=== PATIENT | female | born 1955 | race Caucasian/White ===

== ENCOUNTER 2016-12-29 18:58 | Observation (INO) | payer BC, OTHER ==
[2016-12-29] MEDS ORDERED: ASPIRIN 81 MG CHEW PO STA (20:12)
[2016-12-29] MEDS ORDERED: hydrALAZINE HCL 20 MG/ML 1 ML VIAL IVP STA (20:12)
[2016-12-29] MEDS ORDERED: NITROGLYCERIN OINT 1 INCH/GM PACKET TOPICAL STA (20:12)
--- NOTE | 2016-12-29 20:18 | ED ---
General Adult HPI - General Chief complaint: Chest Pain Stated complaint: Chest Pain Time Seen by Provider: 12/29/16 19:10 Source: patient, RN notes reviewed Mode of arrival: wheelchair Limitations: no limitations - History of Present Illness Initial comments: This is a 61-year-old female presents emergency Department with a past history significant for high blood pressure and a family history of heart disease. Patient comes in today because she was outside feeding the cat when all of a sudden she started having some chest discomfort that went to her jaw and her left arm. Patient states it persisted until she got to the hospital. Now it is much improved though she still has a little chest discomfort. Patient also noted her blood pressure be elevated at the time it was 169 systolic. Patient denied any shortness of breath or difficulty breathing. Patient had any episode of diaphoresis per patient denied any nausea. Patient denied abdominal pain patient denies vomiting or diarrhea recently. Patient any recent history of fever or cough. Patient denies any patient denies numbness weakness. Patient states she's never had a cardiac catheterization but she has had multiple stress tests and they have been negative. - Related Data Home Medications Medication Instructions Recorded Confirmed Aspirin 325 mg PO ONCE 12/29/16 12/29/16 Cetirizine HCl [Zyrtec] 10 mg PO DAILY 12/29/16 12/29/16 Furosemide [Lasix] 40 mg PO BID PRN 12/29/16 12/29/16 Glucosamine/Chondr Rodriguez A Sod [Osteo 1 tab PO DAILY 12/29/16 12/29/16 Bi-Flex Caplet] Losartan [Cozaar] 25 mg PO DAILY 12/29/16 12/29/16 [place]-3 Fatty Acids/Fish Oil [Fish 1 cap PO DAILY 12/29/16 12/29/16 Oil 1,000 mg Capsule] Allergies Allergy/AdvReac Type Severity Reaction Status Date / Time No Known Allergies Allergy Verified 12/29/16 19:38 Review of Systems ROS Statement: Those systems with pertinent positive or pertinent negative responses have been documented in the HPI. ROS Other: All systems not noted in ROS Statement are negative. Past Medical History Past Medical History: GERD/Reflux Additional Past Medical History / Comment(s): IBS, DIVERTICULOSIS, ARRYTHMIA History of Any Multi-Drug Resistant Organisms: None Reported Past Surgical History: Appendectomy, Hysterectomy Additional Past Surgical History / Comment(s): TUMOR REMOVED BEHIND LT EAR Past Anesthesia/Blood Transfusion Reactions: Postoperative Nausea & Vomiting ( PONV) Past Psychological History: No Psychological Hx Reported Smoking Status: Never smoker Past Alcohol Use History: None Reported Past Drug Use History: None Reported General Exam - General Exam Comments Initial Comments: GENERAL: Patient is well-developed and well-nourished. Patient is nontoxic and well- hydrated and is in mild distress. ENT: Neck is soft and supple. No significant lymphadenopathy is noted. Oropharynx is clear. Moist mucous membranes. Neck has full range of motion without eliciting any pain. EYES: The sclera were anicteric and conjunctiva were pink and moist. Extraocular movements were intact and pupils were equal round and reactive to light. Eyelids were unremarkable. PULMONARY: Unlabored respirations. Good breath sounds bilaterally. No audible rales rhonchi or wheezing was noted. CARDIOVASCULAR: There is a regular rate and rhythm without any murmurs gallops or rubs. ABDOMEN: Soft and nontender with normal bowel sounds. No palpable organomegaly was noted. There is no palpable pulsatile mass. SKIN: Skin is clear with no lesions or rashes and otherwise unremarkable. NEUROLOGIC: Patient is alert and oriented x3. Cranial nerves II through XII are grossly intact. Motor and sensory are also intact. Normal speech, volume and content. Symmetrical smile. MUSCULOSKELETAL: Normal extremities with adequate strength and full range of motion. No lower extremity swelling or edema. No calf tenderness. LYMPHATICS: No significant lymphadenopathy is noted PSYCHIATRIC: Normal psychiatric evaluation. Normal interpersonal interactions appears functionally intact in deals appropriately with others. No signs of depression. No signs of anxiety. Limitations: no limitations Course Vital Signs 12/29/16 12/29/16 12/29/16 18:59 20:01 20:35 Temperature 98.8 F Pulse Rate 86 84 85 Respiratory 18 16 18 Rate Blood Pressure 188/91 152/71 178/81 O2 Sat by Pulse 97 97 95 Oximetry 12/29/16 12/29/16 21:28 22:37 Temperature 97.6 F Pulse Rate 69 84 Respiratory 16 18 Rate Blood Pressure 140/92 128/59 O2 Sat by Pulse 98 96 Oximetry Medical Decision Making - Medical Decision Making EKG shows a normal sinus rhythm at 80 bpm [place] interval is on a 56 QRS is 92 QT interval 368 QTC is 424. Patient's EKG shows no ST segment elevation or depression or T-wave abdomen is noted. Nitro paste oxygen and aspirin appear to take the patient's pain away. Patient' s pain was significant and believe it to be unstable angina/started a heparin on the patient I spoke with Dr. Asencio I admitted the patient wrote admitting orders and consult cardiology continued heparin Nitropaste and aspirin on the floor. Chest x-ray was normal. - Lab Data Result diagrams: 12/29/16 19:25 12/29/16 19:25 Lab Results 12/29/16 12/29/16 12/29/16 Range/Units 19:25 19:25 19:25 WBC 8.1 (3.8-10.6) k/uL RBC 4.61 (3.80-5.40) m/uL Hgb 13.3 (11.4-16.0) gm/dL Hct 40.5 (34.0-46.0) % MCV 87.7 (80.0-100.0) fL MCH 28.9 (25.0-35.0) pg MCHC 33.0 (31.0-37.0) g/dL RDW 13.2 (11.5-15.5) % Plt Count 297 (150-450) k/uL Neutrophils % 58 % Lymphocytes % 28 % Monocytes % 5 % Eosinophils % 6 % Basophils % 1 % Neutrophils # 4.7 (1.3-7.7) k/uL Lymphocytes # 2.2 (1.0-4.8) k/uL Monocytes # 0.4 (0-1.0) k/uL Eosinophils # 0.5 (0-0.7) k/uL Basophils # 0.1 (0-0.2) k/uL PT (9.0-12.0) sec INR (<1.1) APTT (22.0-30.0) sec Sodium 140 (137-145) mmol/L Potassium 4.1 (3.5-5.1) mmol/L Chloride 102 (98-107) mmol/L Carbon Dioxide 27 (22-30) mmol/L Anion Gap 11 mmol/L BUN 27 H (7-17) mg/dL Creatinine 0.87 (0.52-1.04) mg/dL Est GFR (MDRD) Af Amer >60 (>60 ml/min/1.73 sqM) Est GFR (MDRD) Non-Af >60 (>60 ml/min/1.73 sqM) Glucose 77 (74-99) mg/dL Calcium 9.8 (8.4-10.2) mg/dL Magnesium 2.1 (1.6-2.3) mg/dL Total Bilirubin 0.5 (0.2-1.3) mg/dL AST 78 H (14-36) U/L ALT 111 H (9-52) U/L Alkaline Phosphatase 176 H (38-126) U/L Total Creatine Kinase 64 (30-135) U/L CK-MB (CK-2) 1.1 (0.0-2.4) ng/mL CK-MB (CK-2) Rel Index 1.7 Troponin I <0.012 (0.000-0.034) ng/mL Total Protein 7.6 (6.3-8.2) g/dL Albumin 4.5 (3.5-5.0) g/dL 12/29/16 Range/Units 19:25 WBC (3.8-10.6) k/uL RBC (3.80-5.40) m/uL Hgb (11.4-16.0) gm/dL Hct (34.0-46.0) % MCV (80.0-100.0) fL MCH (25.0-35.0) pg MCHC (31.0-37.0) g/dL RDW (11.5-15.5) % Plt Count (150-450) k/uL Neutrophils % % Lymphocytes % % Monocytes % % Eosinophils % % Basophils % % Neutrophils # (1.3-7.7) k/uL Lymphocytes # (1.0-4.8) k/uL Monocytes # (0-1.0) k/uL Eosinophils # (0-0.7) k/uL Basophils # (0-0.2) k/uL PT 9.6 (9.0-12.0) sec INR 0.9 (<1.1) APTT 22.5 (22.0-30.0) sec Sodium (137-145) mmol/L Potassium (3.5-5.1) mmol/L Chloride (98-107) mmol/L Carbon Dioxide (22-30) mmol/L Anion Gap mmol/L BUN (7-17) mg/dL Creatinine (0.52-1.04) mg/dL Est GFR (MDRD) Af Amer (>60 ml/min/1.73 sqM) Est GFR (MDRD) Non-Af (>60 ml/min/1.73 sqM) Glucose (74-99) mg/dL Calcium (8.4-10.2) mg/dL Magnesium (1.6-2.3) mg/dL Total Bilirubin (0.2-1.3) mg/dL AST (14-36) U/L ALT (9-52) U/L Alkaline Phosphatase (38-126) U/L Total Creatine Kinase (30-135) U/L CK-MB (CK-2) (0.0-2.4) ng/mL CK-MB (CK-2) Rel Index Troponin I (0.000-0.034) ng/mL Total Protein (6.3-8.2) g/dL Albumin (3.5-5.0) g/dL Critical Care Time Critical Care Time: Yes Total Critical Care Time: 35 Disposition Clinical Impression: Unstable angina pectoris Disposition: ADMITTED IP TO THIS [facility] Time of Disposition: 22:20
--- NOTE | 2016-12-29 20:34 | XR ---
EXAMINATION TYPE: XR chest 2V DATE OF EXAM: 12/29/2016 COMPARISON: NONE HISTORY: Chest pain TECHNIQUE: Frontal and lateral views of the chest are obtained. FINDINGS: Heart and mediastinum are normal. Lungs are clear of consolidation. There is a small linea r density at the lateral left lung base. There are no hilar masses. Bony thorax is intact. IMPRESSION: Mild subsegmental atelectasis at the lateral left lung base. Normal heart.
[2016-12-29 20:38] LABS: Basophils # (A) 0.1 k/uL (0-0.2); Basophils % (A) 1 %; CH 29.1; CHCM 33.3; Eosinophils # (A) 0.5 k/uL (0-0.7); Eosinophils % (A) 6 %; HCT 40.5 % (34.0-46.0); HDW 2.42; HGB 13.3 gm/dL (11.4-16.0); Luc # (Auto) 0.19; Luc % (Auto) 2; Lymphocytes # (A) 2.2 k/uL (1.0-4.8); Lymphocytes % (A) 28 %; MCH 28.9 pg (25.0-35.0); MCV 87.7 fL (80.0-100.0); Mean Platelet Volume 6.4; Monocytes # (A) 0.4 k/uL (0-1.0); Monocytes % (A) 5 %; Neutrophils # (A) 4.7 k/uL (1.3-7.7); Neutrophils % (A) 58 %; RBC 4.61 m/uL (3.80-5.40); RDW 13.2 % (11.5-15.5); WBC 8.1 k/uL (3.8-10.6); WBC (Perox) 8.48
[2016-12-29 20:49] LABS: INR 0.9 (<1.1); Partial Thromboplastin Time 22.5 sec (22.0-30.0); Prothrombin Time 9.6 sec (9.0-12.0)
[2016-12-29 20:57] LABS: ALT 111 U/L (9-52); AST 78 U/L (14-36); Alkaline Phosphatase 176 U/L (38-126); Anion Gap 11 mmol/L; Blood Urea Nitrogen 27 mg/dL (7-17); Calcium 9.8 mg/dL (8.4-10.2); Carbon Dioxide 27 mmol/L (22-30); Chloride 102 mmol/L (98-107); Glucose 77 mg/dL (74-99); Magnesium 2.1 mg/dL (1.6-2.3); Non-African American GFR(MDRD) >60 (>60 ml/min/1.73 sqM); Potassium 4.1 mmol/L (3.5-5.1); Sodium 140 mmol/L (137-145); Total Bilirubin 0.5 mg/dL (0.2-1.3); Total Protein 7.6 g/dL (6.3-8.2)
[2016-12-29 20:59] LABS: Creatine Kinase 64 U/L (30-135)
[2016-12-29 21:11] LABS: Creatine Kinase MB 1.1 ng/mL (0.0-2.4); Troponin I <0.012 ng/mL (0.000-0.034)
[2016-12-29] MEDS ORDERED: HEPARIN SODIUM,PORCINE 5,000 UNIT/ML 1 ML VIAL IV ONE (22:19)
[2016-12-29] MEDS ORDERED: NITROGLYCERIN SL TABS 0.4 MG TAB SUBLINGUAL PRN (22:20)
[2016-12-29] MEDS ORDERED: HEPARIN SODIUM,PORCINE/D5W PMX 25,000 UNIT in DEXTROSE/WATER 1 500ML.BAG IV SCH (22:30)
[2016-12-29 23:19] VITALS: BMI 33.5
[2016-12-30] MEDS: NITROGLYCERIN OINT 1 INCH/GM PACKET TOPICAL SCH ×3 (00:35→13:15)
[2016-12-30 01:52] LABS: Creatine Kinase 41 U/L (30-135)
[2016-12-30 02:05] LABS: Creatine Kinase MB 0.7 ng/mL (0.0-2.4); Troponin I <0.012 ng/mL (0.000-0.034)
[2016-12-30] MEDS: ASPIRIN 325 MG TAB PO SCH ×2 (03:49→08:49)
[2016-12-30 04:14] LABS: Cholesterol 195 mg/dL (<200); HDL Cholesterol 73 mg/dL (40-60); Triglycerides 63 mg/dL (<150)
[2016-12-30 07:18] VITALS: RESP 16; TEMP 97.7
[2016-12-30] MEDS ORDERED: ACETAMINOPHEN TAB 325 MG TAB PO PRN (08:49)
[2016-12-30 08:53] LABS: Creatine Kinase 41 U/L (30-135)
[2016-12-30 09:07] LABS: Creatine Kinase MB 0.7 ng/mL (0.0-2.4); Troponin I <0.012 ng/mL (0.000-0.034)
[2016-12-30 11:46] VITALS: BP 113/55; PULSE 67
--- NOTE | 2016-12-30 11:56 | P.HPIM ---
History of Present Illness H&P Date: 12/30/16 This is a 61-year-old female with past medical history significant for hypertension who presented to the emergency room with burning sensation in the epigastric area as well as left jaw and left arm pain. Patient said that her symptoms started all of a sudden. She did not have any jaclyn chest pain per se. She was concerned and decided to come to the emergency room. She denies any shortness of breath or diaphoresis. 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 She was evaluated in the emergency room and 12 leads EKG showed nonacute ischemic changes. Serial troponin were negative 3 sets. Patient was seen and evaluated by cardiology on the observation unit and was cleared for discharge. Her pain was atypical in nature. She will follow-up with cardiology in the office next week. Patient remained chest pain-free otherwise. She will be discharged home in a stable condition. Review of Systems Review of system: 14 points review of systems were obtained and were negative except to what were mentioned in the HPI. Past Medical History Past Medical History: GERD/Reflux Additional Past Medical History / Comment(s): IBS, DIVERTICULOSIS, ARRYTHMIA History of Any Multi-Drug Resistant Organisms: None Reported Past Surgical History: Appendectomy, Hysterectomy Additional Past Surgical History / Comment(s): TUMOR REMOVED BEHIND LT EAR Past Anesthesia/Blood Transfusion Reactions: Postoperative Nausea & Vomiting ( PONV) Past Psychological History: No Psychological Hx Reported Smoking Status: Never smoker Past Alcohol Use History: None Reported Past Drug Use History: None Reported Medications and Allergies Home Medications Medication Instructions Recorded Confirmed Type Aspirin 325 mg PO ONCE 12/29/16 12/29/16 History Cetirizine HCl [Zyrtec] 10 mg PO DAILY 12/29/16 12/29/16 History Furosemide [Lasix] 40 mg PO BID PRN 12/29/16 12/29/16 History Glucosamine/Chondr Rodriguez A Sod [Osteo 1 tab PO DAILY 12/29/16 12/29/16 History Bi-Flex Caplet] Losartan [Cozaar] 25 mg PO DAILY 12/29/16 12/29/16 History [place]-3 Fatty Acids/Fish Oil [Fish 1 cap PO DAILY 12/29/16 12/29/16 History Oil 1,000 mg Capsule] Allergies Allergy/AdvReac Type Severity Reaction Status Date / Time No Known Allergies Allergy Verified 12/29/16 19:38 Physical Exam Vitals: Vital Signs Temp Pulse Pulse Resp BP BP Pulse Ox 12/30/16 11:45 97.7 F 67 16 113/55 96 12/30/16 07:17 97.7 F 70 16 121/73 97 12/30/16 04:00 98 F 71 18 124/65 96 12/30/16 00:11 76 18 12/29/16 23:18 97.7 F 75 18 145/69 93 L 12/29/16 22:37 97.6 F 84 18 128/59 96 12/29/16 21:28 69 16 140/92 98 12/29/16 20:35 85 18 178/81 95 12/29/16 20:01 84 16 152/71 97 12/29/16 18:59 98.8 F 86 18 188/91 97 Intake and Output 12/29/16 12/30/16 12/30/16 22:59 06:59 14:59 Other: # Voids 1 Weight 94.347 kg General: The patient is awake and alert, in no distress Eye: there is normal conjunctiva bilaterally. Neck: The neck is supple, there is no JVD. Cardiovascular: Normal S1-S2, no S3-S4, no murmurs. Respiratory: Lungs clear to auscultation bilaterally Gastrointestinal: Abdomen is soft, nontender Musculoskeletal: There is no pedal edema. Neurological:. Speech is normal. Skin: Skin is warm and dry Results CBC & Chem 7: 12/29/16 19:25 12/29/16 19:25 Labs: Abnormal Lab Results - Last 24 Hours (Table) 12/29/16 12/30/16 12/30/16 Range/Units 19:25 03:41 03:41 APTT 38.5 H (22.0-30.0) sec BUN 27 H (7-17) mg/dL AST 78 H (14-36) U/L ALT 111 H (9-52) U/L Alkaline Phosphatase 176 H (38-126) U/L LDL Cholesterol, Calc 109 H (0-99) mg/dL HDL Cholesterol 73 H (40-60) mg/dL 12/30/16 Range/Units 07:42 APTT 35.6 H (22.0-30.0) sec BUN (7-17) mg/dL AST (14-36) U/L ALT (9-52) U/L Alkaline Phosphatase (38-126) U/L LDL Cholesterol, Calc (0-99) mg/dL HDL Cholesterol (40-60) mg/dL Thrombosis Risk Factor Assmnt - Choose All That Apply Each Factor Represents 1 point: Age 41-60 years Thrombosis Risk Factor Assessment Total Risk Factor Score: 1 Thrombosis Risk Factor Assessment Level: Low Risk Assessment and Plan Plan: This is a 61-year-old female with past medical history significant for hypertension who presented to the emergency room with burning sensation in the epigastric area as well as left jaw and left arm pain. Patient said that her symptoms started all of a sudden. She did not have any jaclyn chest pain per se. She was concerned and decided to come to the emergency room. She denies any shortness of breath or diaphoresis. 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 She was evaluated in the emergency room and 12 leads EKG showed nonacute ischemic changes. Serial troponin were negative 3 sets. Patient was seen and evaluated by cardiology on the observation unit and was cleared for discharge. Her pain was atypical in nature. She will follow-up with cardiology in the office next week. Patient remained chest pain-free otherwise. She will be discharged home in a stable condition.
--- NOTE | 2016-12-30 11:57 | P.DS ---
Providers Date of admission: 12/29/16 22:20 Expected date of discharge: 12/30/16 Attending physician: Tawana Asencio Consults: 12/29/16 22:20 Consult Physician Urgent Consulting Provider: [facility] Consult Reason/Comments: Unstable angina Do you want consulting provider notified?: Yes Primary care physician: Babs [facility] Course: This is a 61-year-old female with past medical history significant for hypertension who presented to the emergency room with burning sensation in the epigastric area as well as left jaw and left arm pain. Patient said that her symptoms started all of a sudden. She did not have any jaclyn chest pain per se. She was concerned and decided to come to the emergency room. She denies any shortness of breath or diaphoresis. 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 She was evaluated in the emergency room and 12 leads EKG showed nonacute ischemic changes. Serial troponin were negative 3 sets. Patient was seen and evaluated by cardiology on the observation unit and was cleared for discharge. Her pain was atypical in nature. She will follow-up with cardiology in the office next week. Patient remained chest pain-free otherwise. She will be discharged home in a stable condition. Plan - Discharge Summary New Discharge Prescriptions: No Action [place]-3 Fatty Acids/Fish Oil [Fish Oil 1,000 mg Capsule] 1 cap PO DAILY Losartan [Cozaar] 25 mg PO DAILY Glucosamine/Chondr Rodriguez A Sod [Osteo Bi-Flex Caplet] 1 tab PO DAILY Cetirizine HCl [Zyrtec] 10 mg PO DAILY Aspirin 325 mg PO ONCE Furosemide [Lasix] 40 mg PO BID PRN PRN Reason: Edema Discharge Medication List Aspirin 325 mg PO ONCE 12/29/16 [History] Cetirizine HCl [Zyrtec] 10 mg PO DAILY 12/29/16 [History] Furosemide [Lasix] 40 mg PO BID PRN 12/29/16 [History] Glucosamine/Chondr Rodriguez A Sod [Osteo Bi-Flex Caplet] 1 tab PO DAILY 12/29/16 [ History] Losartan [Cozaar] 25 mg PO DAILY 12/29/16 [History] [place]-3 Fatty Acids/Fish Oil [Fish Oil 1,000 mg Capsule] 1 cap PO DAILY [History] Follow up Appointment(s)/Referral(s): Babs Harden MD [Primary Care Provider] - 1-2 days Sidney Min MD [STAFF PHYSICIAN] - 1 Week Discharge Disposition: HOME SELF-CARE
--- NOTE | 2016-12-30 12:43 | CONS ---
DATE OF CONSULTATION: This is a 61-year-old lady with a known history of hypertensive cardiovascular disease who sees Dr. Isak Min in the outpatient setting. She came into the hospital after an episode of what she describes as a jaw discomfort and also a sharp pain in the chest that lasted a few seconds and it came on when she came out and was feeding her barn cats. She also had some jaw discomfort, left shoulder and also chest discomfort, but the pain was very brief and she also felt her blood pressure was elevated to 169 systolic felt concerned and came into the hospital. She had a dobutamine echo in May, which was normal. Her hypertension has generally been under fairly good control. She does take Lasix from time to time for edema. She has no history of any diabetes and has no hyperlipidemia. At the time of my evaluation, she is resting comfortably without symptoms. Does not have any symptoms and is resting comfortably. Troponins are normal and EKG does not reveal any ST segment changes to indicate any ischemia. PAST MEDICAL HISTORY: 1. Gastroesophageal reflux disease. 2. History of irritable bowel syndrome. 3. History of some palpitations. 4. History of hypertension, but no documented evidence of myocardial infarction, CVA or diabetes. 5. She is status post appendectomy and hysterectomy. ALLERGIES: NONE. Medications at home include: 1. Aspirin 325 mg daily. 2. Zyrtec. 3. Lasix 40 mg p.r.n. 4. Losartan 25 mg daily. SYSTEM: Unremarkable other than above-mentioned facts. SOCIAL HISTORY: Patient is not a smoker, does not consume alcohol. On examination, blood pressure is 120/73, pulse rate is 70 per minute. HEENT: Unremarkable. Fundus was not examined by me. Neck is supple. No JVD. I do not hear a carotid bruit. There is no thyromegaly. Heart exam reveals S1 and S2 heard normally without a rub, murmur or gallop. Lungs are clear. ABDOMEN: Soft, nontender. Lower extremities reveal normal pulses. No edema. Central nervous system is normal. EKG revealed sinus mechanism. No acute changes. This patient had a dobutamine stress echo which was normal in June 07 and also an echocardiogram that did not reveal significant abnormalities. IMPRESSION: 1. Atypical chest pain in a patient with a recent unremarkable dobutamine echo. 2. Hypertension. 3. History of some pulmonary issues for which he saw account director and had pulmonary function tests which were normal. RECOMMENDATIONS: I am recommending that we discontinue heparin, increase activity, and if she has no further symptoms, she can be discharged and I will see her in the office in one week an appointment has been made. She is advised to continue same medications. Thank you very much for the consult.
== END 2016-12-30 12:46 | disposition home or self-care (01) ==
LOC: EC 18:58 → 3OBS 22:20
PROVIDERS: ADMIT Internal Medicine; ATTEND Internal Medicine
DX: R07.89 Other chest pain (principal); R68.84 Jaw pain; M79.602 Pain in left arm; I11.9 Hypertensive heart disease without heart failure; R60.9 Edema, unspecified; Z79.82 Long term (current) use of aspirin; Z79.899 Other long term (current) drug therapy; Z82.49 Family history of ischemic heart disease and other diseases of the circulatory system
CPT/HCPCS: 99291; 96375 ×2; 96376 ×2; 96365; 96366 ×2; 36415; 93005; 80061; 80053; 82550 ×2; 82553 ×2; 83735; 84484 ×2; 85025; 85610; 85730 ×2; 71020; G0378 ×2; J0360; J1644 ×2

== ENCOUNTER 2017-04-10 08:42 | Day surgery (SDC) | payer OTHER ==
[2017-04-05 15:49] VITALS: BMI 33.0
[~2017-04-10 08:42] MED LIST: LACTATED RINGERS 1,000 ML IV SCH; LIDOCAINE 1% 20 ML VIAL (10MG/ML) FOR IV START INTRADERMA PRN
[2017-04-10 09:11] VITALS: TEMP 98
[2017-04-10] MEDS ORDERED: ONDANSETRON 4 MG/2 ML VIAL IVP ONE (09:18)
[2017-04-10] MEDS ORDERED: PROPOFOL 10 MG/ML 20 ML VIAL IV ONE (10:23)
--- NOTE | 2017-04-10 10:48 | P.PCN ---
Date of Procedure: 04/10/17 Procedure(s) Performed: Procedure: Total colonoscopy. Preoperative diagnosis: Screening for neoplasia. Postoperative diagnosis: Sigmoid diverticulosis with no evidence of acute diverticulitis, strictures, polyps or cancer. Preparation: HalfLytely prep. Sedation: Was provided by anesthesia. Brief clinical history: The patient is a 61-year-old female who is referred for this evaluation for screening for neoplasia. She had a prior exam more than 12 years ago. There is no family history of colon cancer. At this time, she has no new abdominal complaints, bleeding or anemia. Procedure: With the patient on her left lateral decubitus position and after informed consent and adequate sedation, the perianal area was inspected and it did not show any fissures or fistulas. There were no masses felt on digital rectal examination. The Olympus CFQ 160L video colonoscope was then inserted in the rectum in the usual fashion and advanced to the cecum. There were a few diverticular orifices seen scattered in the distal sigmoid with no evidence of acute diverticulitis or strictures. No polyps or tumors were seen. The mucosa appeared healthy. I retroflexed the endoscope in the rectum before the endoscope was withdrawn. The patient tolerated the procedure well. Plan: The patient was reassured. Discussed dietary measures. She will follow- up with you as planned and I recommended repeat exam in 10 years.
[2017-04-10 11:03] VITALS: BP 179/79; PULSE 60; RESP 16
== END 2017-04-10 12:10 | disposition home or self-care (01) ==
LOC: ORWHC2ENDO 08:42
DX: Z12.11 Encounter for screening for malignant neoplasm of colon (principal); K57.30 Diverticulosis of large intestine without perforation or abscess without bleeding; I10 Essential (primary) hypertension; M19.90 Unspecified osteoarthritis, unspecified site; K58.9 Irritable bowel syndrome, unspecified; K21.9 Gastro-esophageal reflux disease without esophagitis; I49.9 Cardiac arrhythmia, unspecified; Z91.012 Allergy to eggs; Z91.018 Allergy to other foods; Z79.82 Long term (current) use of aspirin; Z79.899 Other long term (current) drug therapy
CPT/HCPCS: G0121; J2405; J2704

== ENCOUNTER → 2017-07-20 | Outpatient (CLI) | payer OTHER ==
--- NOTE | 2017-07-20 13:33 | MM ---
Reason for exam: screening (asymptomatic). Last mammogram was performed 2 years ago. History: Patient is postmenopausal and had first child at age 41. Took estrogen for 1 year 6 months. Physical Findings: A clinical breast exam by your physician is recommended on an annual basis and results should be correlated with mammographic findings. MG Screening Mammo w CAD Bilateral CC and MLO view(s) were taken. Prior study comparison: July 21, 2015, bilateral MG screening mammo w CAD. July 31, 2013, bilateral digital screening mammo w/CAD. There are scattered fibroglandular densities. There are benign appearing stable bilateral calcifications. No suspicious abnormality. Left central asymmetry, stable back to 2011. No significant changes when compared with prior studies. ASSESSMENT: Benign, BI-RAD 2 RECOMMENDATION: Routine screening mammogram of both breasts in 1 year.
== END | disposition home or self-care (01) ==
LOC: RADMAMWWP 06:48
PROVIDERS: ATTEND Obstetrics & Gynecology
DX: Z12.31 Encounter for screening mammogram for malignant neoplasm of breast (principal)

== ENCOUNTER → 2018-07-29 | Outpatient (CLI) | payer OTHER ==
--- NOTE | 2018-08-04 09:34 | MM ---
Reason for exam: screening (asymptomatic). Last mammogram was performed 1 year ago. History: Patient is postmenopausal and had first child at age 41. Took estrogen for 1 year 6 months. MG Screening Mammo w CAD Bilateral CC and MLO view(s) were taken. Prior study comparison: July 20, 2017, bilateral MG screening mammo w CAD. July 21, 2015, bilateral MG screening mammo w CAD. There are scattered fibroglandular densities. There are benign-appearing round calcification in bilaterat breast. No significant changes when compared with prior studies. ASSESSMENT: Benign, BI-RAD 2 RECOMMENDATION: Routine screening mammogram of both breasts in 1 year.
== END | disposition home or self-care (01) ==
LOC: RADMAMWWP 08:11
PROVIDERS: ATTEND Family Medicine
DX: Z12.31 Encounter for screening mammogram for malignant neoplasm of breast (principal)
CPT/HCPCS: 77067

== ENCOUNTER → 2019-06-24 | Outpatient (CLI) | payer OTHER ==
--- NOTE | 2019-06-24 10:29 | US ---
EXAMINATION TYPE: US abdomen comp/pelvis limited DATE OF EXAM: 06/24/2019 COMPARISON: CT 2016 CLINICAL HISTORY: R10.11 Rt Upper Quad Pain. Pain with nausea and vomiting. EXAM MEASUREMENTS: Liver Length: 14.6 cm Gallbladder Wall: .2 cm CBD: .2 cm Spleen: 11 cm Right Kidney: 10.6 x 4.0 x 3.2 cm Left Kidney: 10.1 x 4.8 x 3.5 cm Pancreas: Tail obscured by bowel gas. Liver: wnl Gallbladder: No stones seen CBD: wnl Spleen: wnl Right Kidney: wnl Left Kidney: wnl Upper IVC: wnl Abd Aorta: wnl Bladder: wnl Bilateral Jets Seen No IMPRESSION: No acute finding identified on images saved.
== END | disposition home or self-care (01) ==
LOC: RADUSWWP 08:08
PROVIDERS: ATTEND Family Medicine
DX: R10.11 Right upper quadrant pain (principal)
CPT/HCPCS: 76700; 76857

== ENCOUNTER → 2020-04-14 | Outpatient (CLI) | payer OTHER ==
--- NOTE | 2020-04-15 13:41 | MM ---
Reason for exam: screening (asymptomatic). Last mammogram was performed 1 year and 9 months ago. History: Patient is postmenopausal and had first child at age 41. Took estrogen for 1 year 6 months. Physical Findings: A clinical breast exam by your physician is recommended on an annual basis and results should be correlated with mammographic findings. MG Screening Mammo w CAD Bilateral CC and MLO view(s) were taken. Prior study comparison: July 29, 2018, bilateral MG screening mammo w CAD. July 20, 2017, bilateral MG screening mammo w CAD. There are scattered fibroglandular densities. Finding #1: There is a circumscribed oval mass in the upper outer quadrant, middle position of the right breast. Finding #2: There are unchanged typically benign calcifications in both breasts. Asymmetry left lateral breast on CC view middle depth. More defined since July 29, 2018 and July 20, 2017. ASSESSMENT: Incomplete: need additional imaging evaluation, BI-RAD 0 RECOMMENDATION: Special view mammogram of both breasts. If lesion persists on supplemental views, image directed ultrasound is recommended. [facility] will attempt to contact patient to return for supplemental views and ultrasound if indicated.
== END | disposition home or self-care (01) ==
LOC: RADMAMWWP 14:47
PROVIDERS: ATTEND Obstetrics & Gynecology
DX: Z12.31 Encounter for screening mammogram for malignant neoplasm of breast (principal)
CPT/HCPCS: 77067

== ENCOUNTER → 2020-05-06 | Outpatient (CLI) | payer OTHER ==
--- NOTE | 2020-05-07 09:59 | MM ---
Reason for exam: additional evaluation requested from abnormal screening. Last mammogram was performed 1 month ago. History: Patient is postmenopausal and had first child at age 41. Took estrogen for 1 year 6 months. Physical Findings: Nurse did not find any significant physical abnormalities on exam. MG 3D Work Up W/Cad TATYANA Bilateral spot compression CC and spot compression MLO view(s) were taken. Prior study comparison: April 14, 2020, bilateral MG screening mammo w CAD. July 29, 2018, bilateral MG screening mammo w CAD. The breast tissue is heterogeneously dense. This may lower the sensitivity of mammography. This finding is changed when compared with previous exams. These results were verbally communicated with the patient and result sheet given to the patient on 05/06/20. ASSESSMENT: Suspicious, BI-RAD 4 RECOMMENDATION: Stereotactic core biopsy of the left breast. (3D) Called Dr. Horowitz's office with mammographic findings and has scheduled an appointment for the patient for 05/11/20 at 10:[address] Eng. PRELIMINARY REPORT CALLED AND FAXED TO DR. ENG ON 05/07/20.
== END | disposition home or self-care (01) ==
LOC: RADMAMWWP 14:52
PROVIDERS: ATTEND Obstetrics & Gynecology
DX: R92.8 Other abnormal and inconclusive findings on diagnostic imaging of breast (principal)
CPT/HCPCS: 77062; 77066

== ENCOUNTER 2020-12-04 13:43 | Emergency (ER) | payer OTHER ==
[2020-12-04 13:47] VITALS: TEMP 97.9
--- NOTE | 2020-12-04 13:56 | ED ---
General Adult HPI - General Chief complaint: Chest Pain Stated complaint: Chest Pain Time Seen by Provider: 12/04/20 13:56 Source: patient Mode of arrival: ambulatory Limitations: no limitations - History of Present Illness Initial comments: Patient presents to the ED with her for evaluation. 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 Patient states that it felt like a "muscle spasm" to her. Patient states that her pain lasted for about a minute or 2 before spontaneously resolving, and she states that she has not had any pain or symptoms since then. Patient states that she took a full dose aspirin after her pain began today. Patient denies having any associated symptoms. Patient denies known trauma or injury, fever or chills, headache, focal numbn ess/weakness/neuro deficit, neck/back pain, dyspnea, palpitations, dizziness, nausea/vomiting/diaphoresis, abdominal pain, urinary symptoms, leg or calf swelling or pain, or any other symptoms or complaints. - Related Data Home Medications Medication Instructions Recorded Confirmed Cetirizine HCl [Zyrtec] 10 mg PO DAILY 12/29/16 12/04/20 Ascorbic Acid [Vitamin C] 500 mg PO DAILY 04/05/17 12/04/20 Aspirin [Adult Low Dose Aspirin EC] 81 mg PO DAILY 04/05/17 12/04/20 Losartan Potassium 50 mg PO DAILY 04/05/17 12/04/20 Osteo Bi-Flex With Tumeric 1 tab PO DAILY 04/05/17 12/04/20 Atorvastatin [Lipitor] 20 mg PO DAILY 12/04/20 12/04/20 Calcium Carbonate [Calcium] 600 mg PO DAILY 12/04/20 12/04/20 Cholecalciferol [Vitamin D3 (25 25 mcg PO DAILY 12/04/20 12/04/20 Mcg = 1000 Iu)] Multivitamins, Thera [Multivitamin 1 tab PO DAILY 12/04/20 12/04/20 (formulary)] Zinc 50 mg PO DAILY 12/04/20 12/04/20 hydroCHLOROthiazide [Hydrodiuril] 25 mg PO DAILY 12/04/20 12/04/20 Allergies Allergy/AdvReac Type Severity Reaction Status Date / Time banana Allergy Unknown ALLERGY Verified 12/04/20 15:21 TEST POSITIVE casein Allergy Unknown ALLERGY Verified 12/04/20 15:21 TEST POSITIVE wheat Allergy Unknown ALLERGY Verified 12/04/20 15:21 TEST POSITIVE EGG WHITES Allergy Unknown ALLERGY Uncoded 12/04/20 13:47 TEST POSITIVE Review of Systems ROS Statement: Those systems with pertinent positive or pertinent negative responses have been documented in the HPI. ROS Other: All systems not noted in ROS Statement are negative. Past Medical History Past Medical History: Hypertension, Osteoarthritis (OA) Additional Past Medical History / Comment(s): IBS, DIVERTICULOSIS, PALPITATIONS, HEMORRHOIDS, SWELLING RIGHT LEG AND ANKLE., STOMACH PAINS, BLOATING AND DARK STOOL- RECENT ALLERGY TESTING., STATES HOSPITALIZED 2 MONTHS AGO AND WAS TOLD IT WAS AN ANXIETY ATTACK. History of Any Multi-Drug Resistant Organisms: None Reported Past Surgical History: Appendectomy, Hysterectomy Additional Past Surgical History / Comment(s): TUMOR REMOVED BEHIND LT EAR Past Anesthesia/Blood Transfusion Reactions: Postoperative Nausea & Vomiting (PONV) Past Psychological History: Anxiety Smoking Status: Never smoker Past Alcohol Use History: None Reported Past Drug Use History: None Reported - Past Family History Brother(s) Family Medical History: Cancer Additional Family Medical History / Comment(s): STEP-BROTHER= LUNG CANCER General Exam Limitations: no limitations General appearance: alert, in no apparent distress Head exam: Present: atraumatic, normocephalic Eye exam: Present: normal appearance, EOMI ENT exam: Present: mucous membranes moist Neck exam: Present: other (Trachea is in midline). Absent: tenderness Respiratory exam: Present: normal lung sounds bilaterally. Absent: respiratory distress, wheezes, rales, rhonchi, stridor, chest wall tenderness Cardiovascular Exam: Present: regular rate, normal rhythm, normal heart sounds, other (Normal radial pulses bilaterally) GI/Abdominal exam: Present: soft. Absent: distended, tenderness, guarding Extremities exam: Present: other (Negative Homans sign bilaterally). Absent: tenderness, pedal edema, calf tenderness Neurological exam: Present: alert, oriented X3. Absent: motor sensory deficit Psychiatric exam: Present: normal affect, normal mood Skin exam: Present: warm, dry, intact, normal color Course Vital Signs 12/04/20 12/04/20 13:44 16:37 Temperature 97.9 F 97.9 F Pulse Rate 63 72 Respiratory 18 16 Rate Blood Pressure 190/86 152/82 O2 Sat by Pulse 98 99 Oximetry - Reevaluation(s) Reevaluation #1: 12/04/20 17:07 Patient remains alert and breathing comfortably with a normal room air oxygen saturation. Patient continues to deny having any pain or symptoms while in the ED. Patient and are aware the patient's test results, and patient feels comfortable going home at this time. Patient was counseled about chest pain, and she was clearly explained return and follow-up instructions. Patient was instructed to have a low threshold for return to the ED should her symptoms return or worsen. Patient was also instructed to follow up closely with her primary care provider. She feels comfortable with this plan. EKG Findings - EKG Comments: EKG Findings:: Normal sinus rhythm, no ectopy, ventricular rate of 74 bpm, normal WI and QRS intervals, normal QT interval, normal axis, no ST or T-wave abnormality Medical Decision Making - Medical Decision Making Patient's EKG, labs and chest x-ray are all fairly unremarkable. Patient has had 2 negative troponins while in the ED (drawn about 2 hours apart). Patient reports that her pain was in her left anterior shoulder region mainly, and she described it as a "muscle spasm". Patient denies having any associated symptoms. I think that a cardiac etiology of the patient's pain is very unlikely, and I do not suspect an emergent medical condition at this time. Patient and are aware of the patient's test results, and patient feels comfortable going home with her at this time. - Lab Data Result diagrams: 12/04/20 14:28 12/04/20 14:28 Lab Results 12/04/20 12/04/20 12/04/20 Range/Units 14:28 14:28 14:28 WBC 6.3 (3.8-10.6) k/uL RBC 4.64 (3.80-5.40) m/uL Hgb 13.1 (11.4-16.0) gm/dL Hct 40.1 (34.0-46.0) % MCV 86.4 (80.0-100.0) fL MCH 28.3 (25.0-35.0) pg MCHC 32.8 (31.0-37.0) g/dL RDW 13.0 (11.5-15.5) % Plt Count 305 (150-450) k/uL MPV 6.7 Neutrophils % 65 % Lymphocytes % 21 % Monocytes % 5 % Eosinophils % 6 % Basophils % 1 % Neutrophils # 4.1 (1.3-7.7) k/uL Lymphocytes # 1.3 (1.0-4.8) k/uL Monocytes # 0.3 (0-1.0) k/uL Eosinophils # 0.4 (0-0.7) k/uL Basophils # 0.1 (0-0.2) k/uL PT 10.2 (9.0-12.0) sec INR 0.9 (<1.2) APTT 22.4 (22.0-30.0) sec Sodium 138 (137-145) mmol/L Potassium 3.5 (3.5-5.1) mmol/L Chloride 101 (98-107) mmol/L Carbon Dioxide 28 (22-30) mmol/L Anion Gap 9 mmol/L BUN 16 (7-17) mg/dL Creatinine 0.87 (0.52-1.04) mg/dL Est GFR (CKD-EPI)AfAm 82 (>60 ml/min/1.73 sqM) Est GFR (CKD-EPI)NonAf 71 (>60 ml/min/1.73 sqM) Glucose 86 (74-99) mg/dL Calcium 9.6 (8.4-10.2) mg/dL Magnesium 2.1 (1.6-2.3) mg/dL Total Bilirubin 0.5 (0.2-1.3) mg/dL AST 40 H (14-36) U/L ALT 43 H (4-34) U/L Alkaline Phosphatase 122 (38-126) U/L Troponin I (0.000-0.034) ng/mL NT-Pro-B Natriuret Pep pg/mL Total Protein 7.0 (6.3-8.2) g/dL Albumin 4.3 (3.5-5.0) g/dL 12/04/20 12/04/20 12/04/20 Range/Units 14:28 14:28 16:32 WBC (3.8-10.6) k/uL RBC (3.80-5.40) m/uL Hgb (11.4-16.0) gm/dL Hct (34.0-46.0) % MCV (80.0-100.0) fL MCH (25.0-35.0) pg MCHC (31.0-37.0) g/dL RDW (11.5-15.5) % Plt Count (150-450) k/uL MPV Neutrophils % % Lymphocytes % % Monocytes % % Eosinophils % % Basophils % % Neutrophils # (1.3-7.7) k/uL Lymphocytes # (1.0-4.8) k/uL Monocytes # (0-1.0) k/uL Eosinophils # (0-0.7) k/uL Basophils # (0-0.2) k/uL PT (9.0-12.0) sec INR (<1.2) APTT (22.0-30.0) sec Sodium (137-145) mmol/L Potassium (3.5-5.1) mmol/L Chloride (98-107) mmol/L Carbon Dioxide (22-30) mmol/L Anion Gap mmol/L BUN (7-17) mg/dL Creatinine (0.52-1.04) mg/dL Est GFR (CKD-EPI)AfAm (>60 ml/min/1.73 sqM) Est GFR (CKD-EPI)NonAf (>60 ml/min/1.73 sqM) Glucose (74-99) mg/dL Calcium (8.4-10.2) mg/dL Magnesium (1.6-2.3) mg/dL Total Bilirubin (0.2-1.3) mg/dL AST (14-36) U/L ALT (4-34) U/L Alkaline Phosphatase (38-126) U/L Troponin I <0.012 <0.012 (0.000-0.034) ng/mL NT-Pro-B Natriuret Pep 146 pg/mL Total Protein (6.3-8.2) g/dL Albumin (3.5-5.0) g/dL - Radiology Data Radiology results: report reviewed (Chest x-ray: Normal chest, no change) Disposition Clinical Impression: Chest pain Disposition: HOME SELF-CARE Condition: Stable Instructions (If sedation given, give patient instructions): Chest Pain (ED) Additional Instructions: Return to the ER immediately should you develop new or worsening pain, shortness of breath, a fever, vomiting, feeling dizzy or faint, or new or worsening sy mptoms. Follow up closely with your primary care provider. Is patient prescribed a controlled substance at d/c from ED?: No Referrals: Babs Harden MD [Primary Care Provider] - 1-2 days Time of Disposition: 17:09
[2020-12-04 14:36] LABS: Basophils # (A) 0.1 k/uL (0-0.2); Basophils % (A) 1 %; Eosinophils # (A) 0.4 k/uL (0-0.7); Eosinophils % (A) 6 %; HCT 40.1 % (34.0-46.0); HGB 13.1 gm/dL (11.4-16.0); Lymphocytes # (A) 1.3 k/uL (1.0-4.8); Lymphocytes % (A) 21 %; MCH 28.3 pg (25.0-35.0); MCHC 32.8 g/dL (31.0-37.0); MCV 86.4 fL (80.0-100.0); Mean Platelet Volume 6.7; Monocytes # (A) 0.3 k/uL (0-1.0); Monocytes % (A) 5 %; Neutrophils # (A) 4.1 k/uL (1.3-7.7); Neutrophils % (A) 65 %; Platelet Count 305 k/uL (150-450); RBC 4.64 m/uL (3.80-5.40); WBC 6.3 k/uL (3.8-10.6)
[2020-12-04 14:45] LABS: INR 0.9 (<1.2); Partial Thromboplastin Time 22.4 sec (22.0-30.0); Prothrombin Time 10.2 sec (9.0-12.0)
[2020-12-04 14:46] LABS: Albumin 4.3 g/dL (3.5-5.0); Calcium 9.6 mg/dL (8.4-10.2); Magnesium 2.1 mg/dL (1.6-2.3); Potassium 3.5 mmol/L (3.5-5.1); Total Bilirubin 0.5 mg/dL (0.2-1.3)
--- NOTE | 2020-12-04 15:04 | XR ---
EXAMINATION TYPE: XR chest 2V DATE OF EXAM: 12/04/2020 COMPARISON: 10/12/2018 HISTORY: Chest pain TECHNIQUE: FINDINGS: Heart and mediastinum are normal. Lungs are clear. Diaphragm is normal. There are chest yokasta ds. Bony thorax is intact. IMPRESSION: Normal chest. No change.
[2020-12-04 16:38] VITALS: BP 152/82; PULSE 72; RESP 16
[2020-12-04] MEDS ORDERED: MAG HYDROX/AL HYDROX/SIMETH 30 ML, HYOSCYAMINE ELIXIR 10 ML, LIDOCAINE VISCOUS 2% 10 ML PO STA ×3 (16:57)
== END 2020-12-04 17:21 | disposition home or self-care (01) ==
LOC: EC 13:43
DX: R07.89 Other chest pain (principal); I10 Essential (primary) hypertension; M19.90 Unspecified osteoarthritis, unspecified site; Z90.49 Acquired absence of other specified parts of digestive tract; Z90.710 Acquired absence of both cervix and uterus; Z79.82 Long term (current) use of aspirin
CPT/HCPCS: 36415; 71046; 80053; 83735; 83880; 84484; 85025; 85610; 85730; 93005; 99285

== ENCOUNTER → 2023-12-20 | Outpatient (CLI) | payer MEDICARE ==
[2023-12-20 12:36] LABS: African American GFR (CKD) >90 (>60 ml/min/1.73 sqM); Blood Urea Nitrogen 17 mg/dL (7-17); Non-African American GFR(CKD) 83 (>60 ml/min/1.73 sqM)
--- NOTE | 2023-12-22 14:03 | CT ---
EXAMINATION TYPE: CT ChestAbdPelvis w con DATE OF EXAM: 12/20/2023 INDICATION: hx MALIGNANT NEOPLASM OF ANUS COMPARISON: CT DLP: 1385.6 mGycm CONTRAST: Performed with Oral Contrast and with IV Contrast, patient injected with 100 ml mL of Isovue 300. TECHNIQUE: Axial images at 5 mm thick sections. Reconstructed images in the coronal plane. Delayed images through the kidneys. FINDINGS: CT CHEST: Portion of the thyroid visualized is normal. No suspicious lung nodules or focal infiltrates are present. No enlarged mediastinal or hilar adenopathy is evident. The ascending aorta diameter at the level of the main pulmonary artery is 3.1 cm. The main pulmonary artery diameter at the bifurcation is 2.[address] ABDOMEN: Liver: Normal Spleen: Normal Pancreas: Normal Adrenal glands: The adrenal glands are normal. Gallbladder: Normal Kidneys: No masses are evident. No hydronephrosis is present. No cysts are present. Delayed images were obtained through the kidneys, which remain unremarkable. Aorta: Vascular calcification is within the aorta. Inferior vena cava: Normal. CT PELVIS: Loops of bowel within the abdomen and pelvis are normal. There are loops of bowel which are incom pletely distended or lack oral contrast limiting their evaluation. There is some thickening along the lateral left rectum. Some minimal thickening in the distal rectum appears present. Findings could be compatible with patient's reported malignancy. Correlate for any p rior surgery. Appendix: Not identified. No dilated tubular structure or inflammatory change is evident. Urinary bladder: Normal. Genitourinary structures: Prostate has mild prominence. This may be slightly steward on the right vers us the left. Clinical correlation and follow-up may be useful. Osseous structures: No suspicious lytic or sclerotic lesions. Facet degenerative changes are within t he lower lumbar spine. IMPRESSION: 1. Thickening at the rectum appears asymmetrically greater to the left. 2. Distant metastatic lesions not identified.
== END | disposition home or self-care (01) ==
LOC: RADCTMAIN 11:51
PROVIDERS: ATTEND Internal Medicine
DX: K62.89 Other specified diseases of anus and rectum (principal); C21.0 Malignant neoplasm of anus, unspecified; Z71.3 Dietary counseling and surveillance
CPT/HCPCS: 82565; 84520; 71260; 74177; 36415; Q9967

== ENCOUNTER 2025-01-09 06:42 | Emergency (ER) | payer MEDICARE ==
[2025-01-09 06:49] VITALS: RESP 16
--- NOTE | 2025-01-09 07:30 | ED ---
General Adult HPI - General Chief complaint: Dizziness Stated complaint: Jaw/Throat Pain,Lightheaded Time Seen by Provider: 01/09/25 07:02 Source: patient, RN notes reviewed Mode of arrival: wheelchair Limitations: no limitations - History of Present Illness Initial comments: 69-year-old female presents to the emergency department for evaluation of "fee ling off." Patient notes that this started when she woke up around 630. She states that she was standing in the kitchen and felt off. She states that she did not feel necessarily dizzy but she did have to sit down. She notes that at that time she had a foreign body sensation in her throat. She also notes few cold sweats and chills. She does note that the foreign body sensation in the chills have improved. She denies any known fever, chills. Denies any chest pain, shortness of breath. Denies headache. She does note urinary frequency, denies dysuria. She notes a history of anal cancer which she has been in remission. - Related Data Home Medications Medication Instructions Recorded Confirmed Cetirizine HCl [Zyrtec] 10 mg PO DAILY 12/29/16 08/11/22 Ascorbic Acid [Vitamin C] 500 mg PO DAILY 04/05/17 08/11/22 Aspirin [Adult Low Dose Aspirin EC] 81 mg PO DAILY 04/05/17 08/11/22 Losartan Potassium 50 mg PO DAILY 04/05/17 08/11/22 Atorvastatin [Lipitor] 20 mg PO DAILY 12/04/20 08/11/22 Calcium Carbonate [Calcium] 600 mg PO DAILY 12/04/20 08/11/22 Cholecalciferol [Vitamin D3 (25 25 mcg PO DAILY 12/04/20 08/11/22 Mcg = 1000 Iu)] Zinc 50 mg PO DAILY PRN 12/04/20 08/11/22 hydroCHLOROthiazide [Hydrodiuril] 25 mg PO DAILY 12/04/20 08/11/22 Cider Vinegar [Apple Cider Vinegar] 300 mg PO DAILY PRN 08/11/22 08/11/22 [place] PRN 08/11/22 08/11/22 Mouna 500 mg PO DAILY PRN 08/11/22 08/11/22 Lemon PRN 08/11/22 Magnesium Oxide [Magnesium] 500 mg PO DAILY PRN 08/11/22 08/11/22 [place]-3/Dha/Epa/Fish Oil [Fish Oil 1 each PO DAILY 08/11/22 08/11/22 1,000 mg Softgel] Ondansetron Odt [Zofran Odt] 4 mg PO Q8HR PRN 08/11/22 08/11/22 Potassium Citrate 99 mg PO DAILY PRN 08/11/22 08/11/22 Ubidecarenone [Co Q-10] 200 mg PO DAILY 08/11/22 08/11/22 peppermint oiL 50 mg PO DAILY PRN 08/11/22 08/11/22 Previous Rx's Medication Instructions Recorded Cephalexin [Keflex] 500 mg PO BID #20 cap 01/09/25 Allergies Allergy/AdvReac Type Severity Reaction Status Date / Time banana Allergy Unknown ALLERGY Verified 01/09/25 06:49 TEST POSITIVE casein Allergy Unknown ALLERGY Verified 01/09/25 06:49 TEST POSITIVE wheat Allergy Unknown ALLERGY Verified 01/09/25 06:49 TEST POSITIVE EGG WHITES Allergy Unknown ALLERGY Uncoded 09/08/22 10:29 TEST POSITIVE Review of Systems ROS Statement: Those systems with pertinent positive or pertinent negative responses have been documented in the HPI. ROS Other: All systems not noted in ROS Statement are negative. Past Medical History Past Medical History: Cancer, Hypertension, Osteoarthritis (OA) Additional Past Medical History / Comment(s): IBS, DIVERTICULOSIS, PALPITATIONS, HEMORRHOIDS, SWELLING RIGHT LEG AND ANKLE., STOMACH PAINS, BLOATING AND DARK STOOL- RECENT ALLERGY TESTING., STATES HOSPITALIZED 2 MONTHS AGO AND WAS TOLD IT WAS AN ANXIETY ATTACK. ANAL CANCER - 2022 History of Any Multi-Drug Resistant Organisms: None Reported Past Surgical History: Appendectomy, Hysterectomy Additional Past Surgical History / Comment(s): TUMOR REMOVED BEHIND LT EAR. D/C Past Anesthesia/Blood Transfusion Reactions: Postoperative Nausea & Vomiting (PONV) Past Psychological History: Anxiety Smoking Status: Never smoker Past Alcohol Use History: None Reported Past Drug Use History: None Reported - Past Family History Brother(s) Family Medical History: Cancer Additional Family Medical History / Comment(s): STEP-BROTHER= LUNG CANCER General Exam Limitations: no limitations General appearance: alert, in no apparent distress Head exam: Present: atraumatic, normocephalic, normal inspection Eye exam: Present: normal appearance, PERRL, EOMI. Absent: scleral icterus, conjunctival injection, periorbital swelling ENT exam: Present: normal exam, mucous membranes moist Respiratory exam: Present: normal lung sounds bilaterally. Absent: respiratory distress, wheezes, rales, rhonchi, stridor Cardiovascular Exam: Present: regular rate, normal rhythm, normal heart sounds. Absent: systolic murmur, diastolic murmur, rubs, gallop, clicks GI/Abdominal exam: Present: soft, normal bowel sounds. Absent: distended, tenderness, guarding, rebound, rigid Extremities exam: Present: normal inspection, full ROM, normal capillary refill. Absent: tenderness, pedal edema, joint swelling, calf tenderness Back exam: Present: normal inspection Neurological exam: Present: alert, oriented X3 Psychiatric exam: Present: normal affect, normal mood Skin exam: Present: warm, dry, intact, normal color. Absent: rash Course Vital Signs 01/09/25 06:45 Temperature 97.9 F Pulse Rate 68 Respiratory 16 Rate Blood Pressure 159/81 O2 Sat by Pulse 99 Oximetry Medical Decision Making - Medical Decision Making Was pt. sent in by a medical professional or institution (, PA, EXERCISE INSTRUCT, urgent care, hospital, or snf...) When possible be specific @ -No Did you speak to anyone other than the patient for history (EMS, parent, family, police, friend...)? What history was obtained from this source @ -No Did you review nursing and triage notes (agree or disagree)? Why? @ -I reviewed and agree with nursing and triage notes Were old charts reviewed (outside hosp., previous admission, EMS record, old EKG, old radiological studies, urgent care reports/EKG's, snf records)? Report findings @ -No old charts were reviewed Differential Diagnosis (chest pain, altered mental status, abdominal pain women, abdominal pain men, vaginal bleeding, weakness, fever, dyspnea, syncope, h eadache, dizziness, GI bleed, back pain, seizure, CVA, palpatations, mental health, musculoskeletal)? @ -Differential Dizziness: Benign paroxysmal positional Vertigo, Meniere's disease, otitis media, acoustic neuroma, vertebrobasilar insufficiency, cerebellar stroke, encephalitis, hypovolemic, arrhythmia, coronary artery syndrome, anemia, this is not meant to be an all-inclusive list EKG interpreted by me (3pts min.). @ -EKG@677 reveals sinus rhythm rate 65, AK 184, QRS 90, QTQTc [id number] X-rays interpreted by me (1pt min.). @ -Chest x-ray reveals no acute process CT interpreted by me (1pt min.). @ -None done U/S interpreted by me (1pt. min.). @ -None done What testing was considered but not performed or refused? (CT, X-rays, U/S, labs)? Why? @ -None What meds were considered but not given or refused? Why? @ -None Did you discuss the management of the patient with other professionals (professionals i.e. , PA, EXERCISE INSTRUCT, lab, RT, psych nurse, secondary social studies teacher, medical billing and coding specialist, teacher, uniform patrol police officer, child welfare caseworker)? Give summary @ -No Was smoking cessation discussed for >3mins.? @ -No Was critical care preformed (if so, how long)? @ -No Were there social determinants of health that impacted care today? How? (Homelessness, low income, unemployed, alcoholism, drug addiction, transportati on, low edu. Level, literacy, decrease access to med. care, skilled nursing, rehab)? @ -No Was there de-escalation of care discussed even if they declined (Discuss DNR or withdrawal of care, Hospice)? DNR status @ -No What co-morbidities impacted this encounter? (DM, HTN, Smoking, COPD, CAD, Cancer, CVA, ARF, Chemo, Hep., AIDS, mental health diagnosis, sleep apnea, morbid obesity)? @ -None Was patient admitted / discharged? Hospital course, mention meds given and route, prescriptions, significant lab abnormalities, going to OR and other pertinent info. @ -Discharge.Patient presented emergency department for foreign body sensation in throat, flushing in cheeks and dizziness. Laboratory studies obtained revealing no significant leukocytosis, hemoglobin 13.1; normal coagulation studies; CMP is nonactionable at this time, negative troponin. UA shows large leukocyte esterase, WBCs 36, moderate bacteria. She does note recurrent UTIs and patient will be treated for this. Urine culture will be sent. She will be discharged home. She is understanding agreeable with plan. Patient stable at time of discharge. Case discussed with Dr. Vargas Undiagnosed new problem with uncertain prognosis? @ -No Drug Therapy requiring intensive monitoring for toxicity (Heparin, Nitro, Insulin, Cardizem)? @ -No Were any procedures done? @ -No Diagnosis/symptom? @ -Dizziness, UTI Acute, or Chronic, or Acute on Chronic? @ -Acute Uncomplicated (without systemic symptoms) or Complicated (systemic symptoms)? @ -Uncomplicated Side effects of treatment? @ -No Exacerbation, Progression, or Severe Exacerbation? @ -No Poses a threat to life or bodily function? How? (Chest pain, [place], [place], pneumonia, PE, COPD, DKA, ARF, appy, cholecystitis, CVA, Diverticulitis, Homicidal, Suicidal, threat to staff... and all critical care pts) @ -No - Lab Data Result diagrams: 01/09/25 07:51 01/09/25 07:51 Lab Results 01/09/25 01/09/25 01/09/25 Range/Units 07:24 07:48 07:51 WBC 6.33 (4.50-10.00) 10*3/uL RBC 4.31 (4.10-5.20) 10*6/uL Hgb 13.1 (12.0-15.0) g/dL Hct 37.8 (37.2-46.3) % MCV 87.7 (80.0-97.0) fL MCH 30.4 (27.0-32.0) pg MCHC 34.7 (32.0-37.0) g/dL Plt Count 239 (140-440) 10*3/uL MPV 8.4 L (9.5-12.2) fL Immature Gran % (Auto) 0.3 % Neutrophils % 74.0 % Lymphocytes % 13.7 % Monocytes % 7.7 % Eosinophils % 3.5 % Basophils % 0.8 % Immature Gran # 0.02 (0.00-0.04) 10*3/uL Neutrophils # 4.68 (1.80-7.70) 10*3/uL Lymphocytes # 0.87 L (0.90-5.00) 10*3/uL Monocytes # 0.49 (0.20-1.00) 10*3/uL Eosinophils # 0.22 (0.04-0.35) 10*3/uL Basophils # 0.05 (0.00-0.10) 10*3/uL PT (10.0-12.5) sec INR (<1.2) APTT (22.0-30.0) sec Sodium (137-145) mmol/L Potassium (3.5-5.1) mmol/L Chloride (98-107) mmol/L Carbon Dioxide (22-30) mmol/L Anion Gap mmol/L BUN (7-17) mg/dL Creatinine (0.52-1.04) mg/dL Est GFR (CKD-EPI)AfAm (>60 ml/min/1.73 sqM) Est GFR (CKD-EPI)NonAf (>60 ml/min/1.73 sqM) Glucose (74-99) mg/dL POC Glucose (mg/dL) 105 (70-110) mg/dL POC Glu Senior Editor ID Elliott French Calcium (8.4-10.2) mg/dL Magnesium (1.6-2.3) mg/dL Total Bilirubin (0.2-1.3) mg/dL AST (14-36) U/L ALT (4-34) U/L Alkaline Phosphatase (38-126) U/L Troponin I (0.000-0.034) ng/mL Total Protein (6.3-8.2) g/dL Albumin (3.5-5.0) g/dL Urine Color Colorless Urine Appearance Clear (Clear) Urine pH 7.0 (5.0-8.0) Ur Specific [place] 1.006 (1.001-1.035) Urine Protein Negative (Negative) Urine Glucose (UA) Negative (Negative) Urine Ketones Negative (Negative) Urine Blood Negative (Negative) Urine Nitrite Negative (Negative) Urine Bilirubin Negative (Negative) Urine Urobilinogen <2.0 (<2.0) mg/dL Ur Leukocyte Esterase Large H (Negative) Urine RBC 2 (0-5) /hpf Urine WBC 36 H (0-5) /hpf Ur Squamous Epith Cells <1 (0-4) /hpf Urine Bacteria Moderate H (None) /hpf 01/09/25 01/09/25 01/09/25 Range/Units 07:51 07:51 07:51 WBC (4.50-10.00) 10*3/uL RBC (4.10-5.20) 10*6/uL Hgb (12.0-15.0) g/dL Hct (37.2-46.3) % MCV (80.0-97.0) fL MCH (27.0-32.0) pg MCHC (32.0-37.0) g/dL Plt Count (140-440) 10*3/uL MPV (9.5-12.2) fL Immature Gran % (Auto) % Neutrophils % % Lymphocytes % % Monocytes % % Eosinophils % % Basophils % % Immature Gran # (0.00-0.04) 10*3/uL Neutrophils # (1.80-7.70) 10*3/uL Lymphocytes # (0.90-5.00) 10*3/uL Monocytes # (0.20-1.00) 10*3/uL Eosinophils # (0.04-0.35) 10*3/uL Basophils # (0.00-0.10) 10*3/uL PT 10.5 (10.0-12.5) sec INR 0.9 (<1.2) APTT 22.1 (22.0-30.0) sec Sodium 135 L (137-145) mmol/L Potassium 3.9 (3.5-5.1) mmol/L Chloride 99 (98-107) mmol/L Carbon Dioxide 32 H (22-30) mmol/L Anion Gap 4 mmol/L BUN 19 H (7-17) mg/dL Creatinine 0.89 (0.52-1.04) mg/dL Est GFR (CKD-EPI)AfAm 78 (>60 ml/min/1.73 sqM) Est GFR (CKD-EPI)NonAf 67 (>60 ml/min/1.73 sqM) Glucose 102 H (74-99) mg/dL POC Glucose (mg/dL) (70-110) mg/dL POC Glu Senior Editor ID Calcium 9.7 (8.4-10.2) mg/dL Magnesium 2.2 (1.6-2.3) mg/dL Total Bilirubin 0.6 (0.2-1.3) mg/dL AST 22 (14-36) U/L ALT 15 (4-34) U/L Alkaline Phosphatase 85 (38-126) U/L Troponin I <0.012 (0.000-0.034) ng/mL Total Protein 6.7 (6.3-8.2) g/dL Albumin 4.2 (3.5-5.0) g/dL Urine Color Urine Appearance (Clear) Urine pH (5.0-8.0) Ur Specific [place] (1.001-1.035) Urine Protein (Negative) Urine Glucose (UA) (Negative) Urine Ketones (Negative) Urine Blood (Negative) Urine Nitrite (Negative) Urine Bilirubin (Negative) Urine Urobilinogen (<2.0) mg/dL Ur Leukocyte Esterase (Negative) Urine RBC (0-5) /hpf Urine WBC (0-5) /hpf Ur Squamous Epith Cells (0-4) /hpf Urine Bacteria (None) /hpf Disposition Clinical Impression: Dizziness, Palpitations, UTI (urinary tract infection) Disposition: HOME SELF-CARE Condition: Stable Instructions (If sedation given, give patient instructions): Dizziness (ED) Additional Instructions: Please follow up with your doctor. Return to the emergency department for new or worsening symptoms. Prescriptions: Cephalexin [Keflex] 500 mg PO BID #20 cap Is patient prescribed a controlled substance at d/c from ED?: No Referrals: Amador Galaviz [Primary Care Provider] - 1-2 days
[2025-01-09 07:51] LABS: Glucose,Whole Blood 105 mg/dL (70-110)
[2025-01-09] MEDS: SODIUM CHLORIDE 0.9% 1,000 ML IV STA (07:56)
[2025-01-09 08:10] LABS: Basophils # (A) 0.05 10*3/uL (0.00-0.10); Basophils % (A) 0.8 %; Eosinophils # (A) 0.22 10*3/uL (0.04-0.35); Eosinophils % (A) 3.5 %; HCT 37.8 % (37.2-46.3); HGB 13.1 g/dL (12.0-15.0); Lymphocytes # (A) 0.87 10*3/uL (0.90-5.00); Lymphocytes % (A) 13.7 %; MCH 30.4 pg (27.0-32.0); MCHC 34.7 g/dL (32.0-37.0); MCV 87.7 fL (80.0-97.0); Mean Platelet Volume 8.4 fL (9.5-12.2); Monocytes # (A) 0.49 10*3/uL (0.20-1.00); Monocytes % (A) 7.7 %; Neutrophils # (A) 4.68 10*3/uL (1.80-7.70); Platelet Count 239 10*3/uL (140-440); RBC 4.31 10*6/uL (4.10-5.20); RDW 11.9 % (11.5-14.5); WBC 6.33 10*3/uL (4.50-10.00)
[2025-01-09 08:24] LABS: INR 0.9 (<1.2); Partial Thromboplastin Time 22.1 sec (22.0-30.0); Prothrombin Time 10.5 sec (10.0-12.5)
--- NOTE | 2025-01-09 08:31 | XR ---
EXAMINATION TYPE: XR chest 2V DATE OF EXAM: 01/09/2025 8:10 AM COMPARISON: 12/04/2020 CLINICAL INDICATION: Female, 69 years old with history of dizziness: Shortness of breath TECHNIQUE: XR chest 2V views of the chest are obtained. FINDINGS: Scattered senescent parenchymal changes noted. Hyperinflation compatible with COPD. No evidence for infiltrate. No evidence for atelectasis. Heart size is stable. Mediastinal structures are stable and grossly unremarkable. No evidence for hilar prominence. Degenerative changes dorsal spine. IMPRESSION: 1. No evidence for acute pulmonary disease. [facility], , 01/09/2025 8:29 AM
[2025-01-09 08:45] LABS: ALT 15 U/L (4-34); AST 22 U/L (14-36); African American GFR (CKD) 78 (>60 ml/min/1.73 sqM); Albumin 4.2 g/dL (3.5-5.0); Alkaline Phosphatase 85 U/L (38-126); Anion Gap 4 mmol/L; Blood Urea Nitrogen 19 mg/dL (7-17); Calcium 9.7 mg/dL (8.4-10.2); Carbon Dioxide 32 mmol/L (22-30); Chloride 99 mmol/L (98-107); Glucose 102 mg/dL (74-99); Magnesium 2.2 mg/dL (1.6-2.3); Non-African American GFR(CKD) 67 (>60 ml/min/1.73 sqM); Potassium 3.9 mmol/L (3.5-5.1); Sodium 135 mmol/L (137-145); Total Bilirubin 0.6 mg/dL (0.2-1.3); Total Protein 6.7 g/dL (6.3-8.2)
[2025-01-09 09:28] LABS: Appearance,Urine Clear (Clear); Bacteria,Urine Moderate /hpf; Bilirubin,Urine Negative (Negative); Blood,Urine Negative (Negative); Color,Urine Colorless; Glucose,Urine (UA) Negative (Negative); Ketones,Urine Negative (Negative); Leukocyte Esterase,Urine Large (Negative); Nitrite,Urine Negative (Negative); Protein,Urine Negative (Negative); RBC,Urine 2 /hpf (0-5); Specific Gravity,Urine 1.006 (1.001-1.035); Squamous Epithelial Cell,Urine <1 /hpf (0-4); Urobilinogen,Urine <2.0 mg/dL (<2.0); WBC,Urine 36 /hpf (0-5)
[2025-01-09 11:46] VITALS: BP 105/90; PULSE 60; TEMP 98.4
== END 2025-01-09 11:50 | disposition home or self-care (01) ==
LOC: EC 06:42
DX: R42 Dizziness and giddiness (principal); R00.2 Palpitations; N39.0 Urinary tract infection, site not specified; Z85.048 Personal history of other malignant neoplasm of rectum, rectosigmoid junction, and anus; Z91.012 Allergy to eggs; Z91.018 Allergy to other foods
CPT/HCPCS: 36415; 71046; 80053; 81001; 83735; 84484; 85025; 85610; 85730; 87086; 93005; 99284